=== PATIENT | female | born 1970 | race Caucasian/White ===

== ENCOUNTER 2022-02-17 12:50 | Observation (INO) ==
[2022-02-17] MEDS ORDERED: Naloxone 0.4 MG/ML INJ IVP PRN (14:35)
[2022-02-17] MEDS ORDERED: MOM Conc 10 ML UD.LIQ PO PRN (14:35)
[2022-02-17] MEDS ORDERED: Melatonin 3 MG TABLET PO PRN (14:35)
[2022-02-17] MEDS ORDERED: Ondansetron ODT 4 MG TAB.RAPDIS SL PRN (14:35)
[2022-02-17] MEDS ORDERED: Mag Hydrox/Al Hydrox/Simeth 30 ML UDC PO PRN (14:35)
[2022-02-17] MEDS ORDERED: GI Cocktail 40 ML EACH PO ONE (14:37)
[2022-02-17] MEDS ORDERED: Perflutren Lipid Microsphere 1.3 ML in 0.9 % Sodium Chloride 8.7 ML IVP PRN (14:37)
[2022-02-17 15:10] LABS: Basophils % 0.3 %; Eosinophils # 0.1 K/mcL (0.0-0.6); Eosinophils % 1.1 %; Hemoglobin 14.2 g/dL (11.5-15.4); Immature Granulocytes % 0.3 % (0-4); Lymphocytes % 31.6 %; Mean Corpuscular HGB Conc 34.6 g/dL (31.6-35.5); Mean Corpuscular Hemoglobin 31.3 pg (28.0-33.3); Mean Corpuscular Volume 90.3 fL (83.0-100.0); Mean Platelet Volume 9.6 fL (9.4-12.4); Monocytes # 0.3 K/mcL (0.0-1.3); Monocytes % 5.1 %; Neutrophils # 3.9 K/mcL (1.6-8.9); Platelet Count 200 K/mcL (140-400); Red Blood Count 4.54 M/mcL (3.82-4.97); Red Cell Distribution Width 12.9 % (11.5-14.5); Segmented Neutrophils % 61.6 %; White Blood Count 6.3 K/mcL (4.3-11.1)
[2022-02-17 15:28] LABS: BUN/Creatinine Ratio 13 (6-26); Blood Urea Nitrogen 13 mg/dL (6-20); Calcium 9.7 mg/dL (8.6-10.3); Carbon Dioxide 26 mEq/L (23-29); Chloride 105 mEq/L (98-107); Glucose 105 mg/dL (70-105); Osmolality,Calculated 286 (280-300); Potassium 4.2 mEq/L (3.5-5.1); Sodium 138 mEq/L (136-145); Troponin I < 0.03 ng/mL (< 0.04); eGFR For African Americans > 60 (> 60); eGFR For Non-African Americans 59 (> 60)
[2022-02-18 03:01] LABS: Basophils % 0.2 %; Eosinophils # 0.1 K/mcL (0.0-0.6); Eosinophils % 1.5 %; Hematocrit 39.3 % (35.3-44.9); Immature Granulocytes % 0.4 % (0-4); Lymphocytes # 2.6 K/mcL (0.6-4.6); Lymphocytes % 48.1 %; Mean Corpuscular HGB Conc 33.1 g/dL (31.6-35.5); Mean Corpuscular Hemoglobin 29.5 pg (28.0-33.3); Mean Corpuscular Volume 89.3 fL (83.0-100.0); Mean Platelet Volume 9.4 fL (9.4-12.4); Monocytes # 0.3 K/mcL (0.0-1.3); Monocytes % 5.6 %; Neutrophils # 2.4 K/mcL (1.6-8.9); Platelet Count 183 K/mcL (140-400); Red Cell Distribution Width 12.7 % (11.5-14.5); Segmented Neutrophils % 44.2 %; White Blood Count 5.4 K/mcL (4.3-11.1)
[2022-02-18 03:17] LABS: BUN/Creatinine Ratio 13 (6-26); Blood Urea Nitrogen 14 mg/dL (6-20); Calcium 9.3 mg/dL (8.6-10.3); Carbon Dioxide 23 mEq/L (23-29); Chloride 106 mEq/L (98-107); Glucose 111 mg/dL (70-105); Osmolality,Calculated 285 (280-300); Potassium 3.9 mEq/L (3.5-5.1); Sodium 137 mEq/L (136-145); eGFR For African Americans > 60 (> 60); eGFR For Non-African Americans 53 (> 60)
[2022-02-18] MEDS ORDERED: *HR* Enoxaparin 40 MG/0.4 ML SYRINGE SQ SCH (06:00)
[2022-02-18] MEDS ORDERED: Regadenoson 0.4 MG/5 ML SYRINGE IVP ONE (06:07)
[2022-02-18] MEDS: atenoloL 50 MG TABLET PO SCH (09:55)
[2022-02-18] MEDS: Aspirin 81 MG TAB.CHEW PO SCH (12:04)
[2022-02-19] MEDS: Aspirin 81 MG TAB.CHEW PO SCH (08:18)
[2022-02-19] MEDS: atenoloL 50 MG TABLET PO SCH (11:56)
[2022-02-19] MEDS ORDERED: *HR* Midazolam HCl 2 MG/2 ML VIAL ONE (13:29)
[2022-02-19] MEDS ORDERED: *HR* FentaNYL (PF) 100 MCG/2 ML VIAL ONE (13:29)
[2022-02-19] MEDS ORDERED: 0.9 % Sodium Chloride 2,000 ML ONE (13:29)
[2022-02-19] MEDS ORDERED: *HR* Heparin 10,000 UNIT/10 ML VIAL ONE (13:30)
[2022-02-19] MEDS ORDERED: ISOVUE-370 200 ML INFUS..BTL ONE (13:30)
[2022-02-19] MEDS ORDERED: Nitroglycerin 1,000 MCG/5 ML VIAL IV ONE (13:30)
[2022-02-19] MEDS ORDERED: Heparin 1,000 UNITS/500 mL 500 ML ONE (13:30)
[2022-02-19] MEDS ORDERED: Isovue-370 500 ML BOTTLE IVP ONE (14:46)
[2022-02-20 03:04] LABS: Basophils % 0.4 %; Eosinophils # 0.1 K/mcL (0.0-0.6); Eosinophils % 1.4 %; Hematocrit 41.8 % (35.3-44.9); Hemoglobin 13.8 g/dL (11.5-15.4); Immature Granulocytes % 0.4 % (0-4); Lymphocytes # 2.4 K/mcL (0.6-4.6); Lymphocytes % 46.8 %; Mean Corpuscular Hemoglobin 29.9 pg (28.0-33.3); Mean Corpuscular Volume 90.5 fL (83.0-100.0); Mean Platelet Volume 9.5 fL (9.4-12.4); Monocytes # 0.4 K/mcL (0.0-1.3); Monocytes % 7.5 %; Neutrophils # 2.2 K/mcL (1.6-8.9); Platelet Count 206 K/mcL (140-400); Red Blood Count 4.62 M/mcL (3.82-4.97); Red Cell Distribution Width 12.6 % (11.5-14.5); Segmented Neutrophils % 43.5 %
[2022-02-20 03:59] LABS: BUN/Creatinine Ratio 16 (6-26); Blood Urea Nitrogen 18 mg/dL (6-20); Calcium 9.7 mg/dL (8.6-10.3); Carbon Dioxide 27 mEq/L (23-29); Chloride 101 mEq/L (98-107); Chol/HDL Ratio 10.4 (0-4.9); Cholesterol 188 mg/dL (< 200); Glucose 151 mg/dL (70-105); HDL Cholesterol 18 mg/dL (40-59); Osmolality,Calculated 289 (280-300); Potassium 3.8 mEq/L (3.5-5.1); Sodium 137 mEq/L (136-145); Triglycerides 937 mg/dL (< 150); eGFR For African Americans > 60 (> 60); eGFR For Non-African Americans 51 (> 60)
[2022-02-20] MEDS: atenoloL 50 MG TABLET PO SCH (08:55)
[2022-02-20] MEDS: Aspirin 81 MG TAB.CHEW PO SCH (08:55)
[2022-02-20 11:25] VITALS: BP 159/90; PULSE 53; TEMP 97.8; O2SAT 98
== END 2022-02-20 14:30 | disposition home or self-care (01) ==
LOC: 3BNU 12:50 → EMEROOARM 12:50 → SUATTDRO 15:46 → 3BNU 16:39 → 2NENU 02-19 17:40
PROVIDERS: ADMIT Internal Medicine; ATTEND Internal Medicine